=== PATIENT | male | born 1980 | race Caucasian/White ===

== ENCOUNTER 2016-12-28 19:51 | Emergency (ER) | payer MEDICAID ==
[~2016-12-28] VITALS: Ht 190.5 cm; Wt 113.4 kg
[~2016-12-28 19:51] MED LIST: CYCL5TAB PO; NAPR220C2 PO
[2016-12-28] MEDS ORDERED: HYDR-3307 PO (21:27)
[2016-12-28] MEDS ORDERED: QUET100T4 PO (21:27)
[2016-12-28] MEDS ORDERED: GABA300C10 PO (21:27)
[2016-12-28] MEDS ORDERED: DICL75TA2 PO (21:27)
[2016-12-28] MEDS ORDERED: SUMA25TA4 PO (21:27)
[2016-12-28] MEDS ORDERED: LORazepam 1MG TABLET ONE (21:44)
[2016-12-28] MEDS ORDERED: PROMETHAZINE 25 MG/ML, 1ML ONE (21:44)
[2016-12-28] MEDS ORDERED: KETOROLAC 30 MG/1 ML ONE (21:44)
[2016-12-28] MEDS ORDERED: PROMETHAZINE 25 MG/ML, 1ML IM ONE (22:00)
[2016-12-28] MEDS ORDERED: LORazepam 1MG TABLET PO ONE (22:00)
[2016-12-28] MEDS ORDERED: KETOROLAC 30 MG/1 ML IM ONE (22:00)
[2016-12-28 22:14] LABS: HEMOGLOBIN 15.4 g/dL (13.7-18.0)
[2016-12-28 22:26] LABS: BLOOD UREA NITROGEN 14 mg/dL (7-18)
[2016-12-28 22:30] LABS: ASPARTATE AMINO TRANSFERASE 52 U/L (15-37); IS PT STATUS REG ER OR PRE ER? YES
[2016-12-28 23:05] VITALS: BP 140/93
== END 2016-12-28 23:07 | disposition home or self-care (01) ==
LOC: ED 22:06
DX: R07.2 Precordial pain (principal); R06.00 Dyspnea, unspecified; R10.13 Epigastric pain; G43.019 Migraine without aura, intractable, without status migrainosus; F31.9 Bipolar disorder, unspecified; F17.210 Nicotine dependence, cigarettes, uncomplicated; Z88.0 Allergy status to penicillin
CPT/HCPCS: 36415; 70450; 74022; 80053; 81003; 83690; 84484; 85025; 93005; 96372; 99285; J1885; J2550

== ENCOUNTER 2021-06-29 13:10 | Emergency (ER) | payer SELFPAY ==
[~2021-06-29] VITALS: Ht 188 cm; Wt 123.0 kg
[~2021-06-29 13:10] MED LIST changes: +ARIP5TAB13 PO; +DICL75TA3 PO; +GABA300C10 PO; +HYDR-3248 PO; +QUET100T4 PO; +RISP0.5T24 PO; +SUMA25TA4 PO; +[UNRECOGNIZED DRUG - CODE] PO
[2021-06-29 13:20] VITALS: BP 128/84
--- NOTE | 2021-06-29 13:30 | NUR ---
BREAK RN FOR PRIMARY RN MAURI. PT RESTING IN POSITION OF COMFORT ON ED GURNEY. RESP REGULAR AND UNLABORED. NAD NOTED. SAFE AND SECURED ENVIRONMENT PROVIDED. SITTER REQUESTED, CHORUS DANCER AWARE SITTER NEEDED. PT IN MONITORED ROOM. FALL PRECAUTIONS IN PLACE. SIDE RAILS UP. PT CALM AND COOPERATIVE.
--- NOTE | 2021-06-29 14:01 | NUR ---
REPORT AND CARE BACK TO PRIMARY RN MAURI AT THIS TIME.
--- NOTE | 2021-06-29 14:02 | NUR ---
THIS IS A 41 YEAR OLD MALE WHO WAS BIB AMBULANCE DUE TO INCREASE ANXIETY, AND SI. PT STATES HE IS HAVING A TOUGH TIME WITH LIFE. PT DENIES A PLAN AT THIS TIME. PROVIDED A MEAL, AND WATER. OBTAIN URINE. SENT TO LAB. DISCUSSED PLAN OF CARE WITH PATIENT
[2021-06-29 14:30] LABS: BASOPHILS % (AUTO) 0 % (0-1); EOSINOPHILS % (AUTO) 2 % (1-7); LYMPHOCYTES % (AUTO) 33 % (22-44); MEAN CORPUSCULAR HEMOGLOBIN 32.5 pg (27.5-34.5); MEAN CORPUSCULAR HGB CONC 35.2 g/dL (33.2-36.2); MONOCYTES % (AUTO) 6 % (2-9); NEUTROPHILS % (AUTO) 59 % (42-75); PLATELET COUNT 258 x10^3/uL (130-400); RED BLOOD COUNT 4.67 x10^6/uL (4.38-5.82); RED CELL DISTRIBUTION WIDTH 13.8 % (9.4-14.8)
[2021-06-29 14:35] LABS: ALANINE AMINOTRANSFERASE 69 U/L (12-78); ALBUMIN 3.5 g/dL (3.4-5.0); ANION GAP 4 mmol/L (5-15); CALCIUM 8.8 mg/dL (8.5-10.1); CHLORIDE 108 mmol/L (98-107)
[2021-06-29 14:36] LABS: SALICYLATE LEVEL < 1.7 mg/dL (2.8-20.0)
[2021-06-29 14:37] LABS: ALKALINE PHOSPHATASE 76 U/L (45-117); BILIRUBIN,TOTAL 0.4 mg/dL (0.2-1.0); TOTAL PROTEIN 7.1 g/dL (6.4-8.2)
[2021-06-29] MEDS ORDERED: LORazepam 1MG TABLET ONE (14:40)
--- NOTE | 2021-06-29 14:47 | NUR ---
ALEKS NICOLE IN ROOM FOR EVALUATION
[2021-06-29] MEDS ORDERED: LORazepam 1MG TABLET PO ONE (15:00)
[2021-06-29 15:08] LABS: AMPHETAMINE SCREEN, URINE Negative (Negative); BARBITURATE SCREEN, URINE Negative (Negative); BENZODIAZEPINE SCREEN, URINE Negative (Negative); CANNABINOID SCREEN, URINE Positive (Negative); COCAINE SCREEN, URINE Negative (Negative); METHADONE SCREEN, URINE Negative (Negative); OPIATE SCREEN, URINE Negative (Negative)
--- NOTE | 2021-06-29 15:38 | NUR ---
KATIE BS DUE TO SI
[2021-06-29] MEDS ORDERED: KETOROLAC 30 MG/1 ML IM ONE (16:00)
[2021-06-29] MEDS ORDERED: KETOROLAC 30 MG/1 ML ONE (16:07)
--- NOTE | 2021-06-29 16:25 | NUR ---
PACKET FAXED TO [facility] AND [facility].
[2021-06-29] MEDS ORDERED: QUETIAPINE 25MG TABLET PO PRN (16:30)
[2021-06-29] MEDS ORDERED: QUETIAPINE 25MG TABLET PO ONE (16:30)
[2021-06-29] MEDS ORDERED: LORazepam 1MG TABLET PO PRN (16:30)
--- NOTE | 2021-06-29 16:33 | NUR ---
PT SLEEPING RESP EVEN AND UNLABORED. SITTER AT DOOR
--- NOTE | 2021-06-29 16:50 | NUR ---
ACCEPTED BY DARLENE AT [facility]
--- NOTE | 2021-06-29 17:44 | NUR ---
PT SLEEPING RESP EVEN AND UNLABORED
--- NOTE | 2021-06-29 18:45 | NUR ---
REPORT TO SOHA HARGROVE, PLAN OF CARE DISCUSSED
--- NOTE | 2021-06-29 18:51 | NUR ---
FIRST CONTACT WITH PT. CLARY. PT SLEEPING IN [facility]. PSYCH PERCAUTIONS MAINTAINED. SITTER AT BEDSIDE. GARAGE DOORS DOWN AND LOCKED.
[2021-06-29] MEDS ORDERED: GABAPENTIN 100 MG CAPSULE PO SCH (21:00)
[2021-06-29] MEDS ORDERED: QUETIAPINE 100MG TABLET PO SCH (21:00)
[2021-06-29] MEDS ORDERED: IBUPROFEN 200 MG TABLET PO ONE (23:00)
== END 2021-06-29 20:38 ==
LOC: ED 14:30
DX: R45.851 Suicidal ideations (principal); G43.909 Migraine, unspecified, not intractable, without status migrainosus
CPT/HCPCS: 36415; 80053; 80299; 80307; 80320; 80329; 85025; 99285; G0480